=== PATIENT | male | born 1985 | race Caucasian/White ===

== ENCOUNTER 2020-08-17 02:50 | Inpatient (IN) | payer SELFPAY ==
[~2020-08-17] VITALS: Ht 162.6 cm; Wt 71.7 kg
[2020-08-17 02:58] VITALS: Ht 162.6 cm; Wt 71.7 kg
[2020-08-17 04:55] LABS: BASOPHIL % 0.9 % (0-2); RED CELL DISTRIBUTION WIDTH 16.5 % (11.5-14.5)
[2020-08-17 05:09] LABS: ALBUMIN 3.5 g/dL (3.4-5.0); ALKALINE PHOSPHATASE 256 U/L (46-116); ALT/SGPT 49 U/L (16-63); AST/SGOT 175 U/L (15-37); BILIRUBIN TOTAL 1.79 mg/dL (0.20-1.00); CALCIUM 8.8 mg/dL (8.5-10.1); CARBON DIOXIDE 28.6 mmol/L (21-32); CHLORIDE SERUM 98 mmol/L (98-107); CREATININE SERUM 0.6 mg/dL (0.7-1.3); GFR1 > 60 mL/min; GLUCOSE SERUM 112 mg/dL (74-106); POTASSIUM SERUM 3.7 mmol/L (3.5-5.1); SODIUM SERUM 134 mmol/L (136-145)
[2020-08-17 05:16] LABS: PLATELET COUNT 34 x10^3mcL (130-400); TOTAL PROTEIN, SERUM 8.5 g/dL (6.4-8.2)
[2020-08-17 05:41] LABS: microscopic required? NO
[2020-08-17 05:56] LABS: urine erythrocyte NEGATIVE (NEGATIVE)
[2020-08-17 06:11] LABS: AMPHETAMINE QUAL UR NONE DETECTED (See below)
[2020-08-17 08:17] VITALS: BP 143/87
[2020-08-17 08:46] VITALS: BP 132/81
[2020-08-17 12:00] VITALS: BP 145/89
[2020-08-17 16:18] VITALS: BP 142/90
[2020-08-17 19:20] VITALS: BP 150/73
[2020-08-18 05:49] VITALS: BP 121/70
[2020-08-18 07:32] LABS: ALKALINE PHOSPHATASE 249 U/L (46-116); ALT/SGPT 44 U/L (16-63); AST/SGOT 177 U/L (15-37); BILIRUBIN TOTAL 2.11 mg/dL (0.20-1.00); CALCIUM 8.7 mg/dL (8.5-10.1); CARBON DIOXIDE 25.9 mmol/L (21-32); CHLORIDE SERUM 97 mmol/L (98-107); CREATININE SERUM 0.6 mg/dL (0.7-1.3); GFR1 > 60 mL/min; GLUCOSE SERUM 86 mg/dL (74-106); POTASSIUM SERUM 3.8 mmol/L (3.5-5.1); SODIUM SERUM 131 mmol/L (136-145); TOTAL PROTEIN, SERUM 7.8 g/dL (6.4-8.2)
[2020-08-18 07:37] LABS: ALBUMIN 3.2 g/dL (3.4-5.0)
[2020-08-18 07:53] LABS: BASOPHIL % 0.9 % (0-2)
[2020-08-18 07:54] LABS: RED CELL DISTRIBUTION WIDTH 16.5 % (11.5-14.5)
[2020-08-18 07:55] LABS: PLATELET COUNT 38 x10^3mcL (130-400)
[2020-08-18 07:56] VITALS: BP 124/75
== END 2020-08-18 15:52 | disposition home or self-care (01) | DRG 309 ==
LOC: ED 02:50 → DU 05:22
PROVIDERS: Emergency Medicine; ADMIT Internal Medicine; ATTEND Internal Medicine
DX: R00.0 Tachycardia, unspecified (principal); F10.239 Alcohol dependence with withdrawal, unspecified; Z20.828 Contact with and (suspected) exposure to other viral communicable diseases; I10 Essential (primary) hypertension; D64.9 Anemia, unspecified; D69.6 Thrombocytopenia, unspecified; K74.60 Unspecified cirrhosis of liver
CPT/HCPCS: G0378; G0480; J2060

== ENCOUNTER 2020-10-02 16:03 | Emergency (ER) | payer SELFPAY ==
[~2020-10-02] VITALS: Ht 162.6 cm; Wt 66.2 kg
[2020-10-02 16:10] VITALS: Ht 162.6 cm; Wt 66.2 kg
[2020-10-02 16:45] LABS: BASOPHIL % 0.7 % (0-2); PLATELET COUNT 178 x10^3mcL (130-400); RED CELL DISTRIBUTION WIDTH 17.2 % (11.5-14.5)
[2020-10-02 18:18] VITALS: BP 138/81
== END 2020-10-02 19:13 | disposition left against medical advice (07) ==
LOC: ED 16:03
PROVIDERS: Emergency Medicine
DX: R04.0 Epistaxis (principal); I10 Essential (primary) hypertension; E78.00 Pure hypercholesterolemia, unspecified

== ENCOUNTER 2020-10-02 19:09 | Emergency (ER) | payer OTHER ==
[~2020-10-02] VITALS: Ht 162.6 cm; Wt 81.6 kg
[2020-10-02 19:17] VITALS: Ht 162.6 cm; Wt 81.6 kg
[2020-10-02 19:39] VITALS: BP 149/95
== END 2020-10-02 19:39 | disposition other institution (70) ==
LOC: ED 19:09
DX: Z02.89 Encounter for other administrative examinations (principal)

== ENCOUNTER 2020-10-05 14:26 | Emergency (ER) | payer SELFPAY ==
[~2020-10-05] VITALS: Ht 162.6 cm; Wt 66.7 kg
[2020-10-05 20:50] VITALS: BP 122/78
== END 2020-10-05 20:50 | disposition home or self-care (01) ==
LOC: ED 14:26
DX: S02.92XA Unspecified fracture of facial bones, initial encounter for closed fracture (principal); I10 Essential (primary) hypertension; E78.00 Pure hypercholesterolemia, unspecified; X58.XXXA Exposure to other specified factors, initial encounter; Y93.89 Activity, other specified; Y92.89 Other specified places as the place of occurrence of the external cause; Y99.8 Other external cause status
CPT/HCPCS: Q9967